=== PATIENT | male | born 1935 | race Caucasian/White ===

== ENCOUNTER 2025-01-23 15:33 | Outpatient (OUT) | payer MEDICARE, OTHER, SELFPAY ==
--- OUTSIDE RECORDS SUMMARY | 2025-01-23 15:43 | XMS_ITS | Encounter Summary ---
Author Organization [facility] MutuiOnline [facility] tem Address [id number] [address] [place] [address] Care Team Providers Care Geography Teacher Name Role Phone Vida Walt Ankur HOLMAN Primary Care Provider [phone] Reason for Visit * ReasonOnset DateCommentsMed Yaomam2601/20/2025 Encounter Details DateTypeDepartmentCare Team (Latest Contact Info)Ehvgnthkzhf27/20/2025[facility] [address] [place] [id number] Stefany Rosa CMA Hyperlipidemia, unspecified Social History Tobacco UseTypesPacks/DayYears UsedDateSmoking Tobacco: Every DayPipeSmokeless Tobacco: Never Comments:daily Alcohol UseStandard Drinks/WeekCommentsNo0 (1 standard drink = 0.6 oz pure alcohol)[facility] UtilitiesAnswerDate RecordedIn the past 12 months has the electric, gas, oil, or water company threatened to shut off services in your home?No 05/17/2024Social Connection and Isolation PanelAnswerDate RecordedIn a typical week, how many times do you talk on the phone with family, friends, or neighbors?Once a week01/09/2024How often do you get together with friends or relatives?Once a week01/09/2024How often do you attend tenriism or gnosticism services?Never01/09/2024o you belong to any clubs or organizations such as tenriism groups, unions, fraternal or athletic groups, or school groups?No 01/09/2024How often do you attend meetings of the clubs or organizations you belong to?Never01/09/2024re you , , , , never , or living with a partner?Wssmtym6901/09/2024UDIT-CAnswerDate RecordedQ1: How often do you have a drink containing alcohol?Never01/09/2024Q2: How many drinks containing alcohol do you have on a typical day when you are drinking? Patient does not drink01/09/2024Q3: How often do you have six or more drinks on one occasion?Never01/09/2024Overall Financial Resource Strain (CARDIA)AnswerDate RecordedHow hard is it for you to pay for the very basics like food, housing, medical care, and heating?Not hard at all05/17/2024PHQ-2AnswerDate RecordedTotal Kkwoe069[facility] [place] of Occupational Health - Occupational Stress QuestionnaireAnswerDate RecordedDo you feel stress - tense, restless, nervous, or anxious, or unable to sleep at night because yourmind is troubled all the time - these days?Not at all01/09/2024Exercise Vital SignAnswerDate RecordedOn average, how many days per week do you engage in moderate to strenuous exercise (like a brisk walk)?0 days01/09/2024On average, how many minutes do you engage in exercise at this level?0 min01/09/2024RAPARE - TransportationAnswerDate RecordedIn the past 12 months, has lack of transportation kept you from medical appointments or from getting medications?No05/17/2024In the past 12 months, has lack of transportation kept you from meetings, work, or from getting things needed for daily living?05/17/2024Housing InstabilityAnswerDate RecordedAre you worried or concerned that in the next two months you may not have stable housing that you own, rent or stay in as a part of a household?No05/17/2024 ChildcareAnswerDate RecordedDo problems getting attendant children's institution make it difficult for you to work or study?No01/09/2024EmploymentAnswerDate RecordedDo you need help finding a local career center and/or a training program?No01/09/2024Hunger ScreeningAnswerDate RecordedWithin the past 12 months we worried whether our food would run out before we got money to buy more.Never True12/20/2024Within the past 12 months the food we bought just didn't last and we didn't have money to get more.Never True12/20/2024Purpose - LifeAnswerDate RecordedI have a purpose and direction in my life.Neither Agree nor Kjbimxbt14/08/2024Sex and Gender InformationValueDate RecordedSex Assigned at BirthNot on fileLegal Sex Male11/06/2014 11:57 AM EDTGender IdentityNot on fileSexual OrientationNot on filedocumented as of this encounter Plan of Treatment Not on file documented as of this encounter Goals GoalPatient Goal TypeAssociated ProblemsRecent ProgressPatient-Stated?Author <enter goal here> Cathie Tan, [facility] Note: Evaluation of progress towards goal: Patient plans for a safe discharge home self care. documented as of this encounter Visit Diagnoses Diagnosis Hyperlipidemia, unspecified documented in this encounter Additional Health Concerns AssessmentNoted TimePHQ-9 Depression Total Score: 4:41 PM EDT documented as of this encounter Care Teams Team MemberRelationshipSpecialtyStart DateEnd Date Walt Mcpherson DO [address] [place] [address] PCP - General09/03/13documented as of this encounter
--- OUTSIDE RECORDS SUMMARY | 2025-01-23 15:44 | XMS_ITS | Encounter Summary ---
Author Organization [facility] tem Address [id number] [address] [place] [address] Care Team Providers Care Table Keeper Name Role Phone Walt Mcpherson DO Primary Care Provider [phone] Reason for Visit * ReasonCommentsMed Refill Encounter Details DateTypeDepartmentCare Team (Latest Contact Info)Teouhkronzb92/14/2025Refill [facility] Internal [facility] - Family Medicine [address] [place] [address] Walt Mcpherson DO [address] [place] [address] Benign prostatic hyperplasia with lower urinary tract symptoms; Acute on chronic systolic heart failure ([facility]) Social History Tobacco UseTypesPacks/DayYears UsedDateSmoking Tobacco: Every DayPipeSmokeless Tobacco: Never Comments:daily Alcohol UseStandard Drinks/WeekCommentsNo0 (1 standard drink = 0.6 oz pure alcohol)[facility] UtilitiesAnswerDate RecordedIn the past 12 months has the electric, gas, oil, or water [employer] threatened to shut off services in your home?No 05/17/2024Social Connection and Isolation PanelAnswerDate RecordedIn a typical week, how many times do you talk on the phone with family, friends, or neighbors?Once a week01/09/2024How often do you get together with friends or relatives?Once a week01/09/2024How often do you attend congregation or sabianist services?Never01/09/2024o you belong to any clubs or organizations such as congregation groups, unions, fraternal or athletic groups, or school groups?No 01/09/2024How often do you attend meetings of the clubs or organizations you belong to?Never01/09/2024re you , , , , never , or living with a partner?Wyowono8701/09/2024UDIT-CAnswerDate RecordedQ1: How often do you have a [...] care, and heating?Not hard at all05/17/2024PHQ-2AnswerDate RecordedTotal Evmzt120[facility] [place] of Occupational Health - Occupational Stress QuestionnaireAnswerDate [...] or from getting things needed for daily living?No05/17/2024Housing InstabilityAnswerDate RecordedAre you worried or concerned that in the next two months you may not have stable housing that you own, rent or stay in as a part of a household?No05/17/2024 ChildcareAnswerDate RecordedDo problems getting child caregiver make it difficult for you to work [...] and direction in my life.Neither Agree nor Ixgaifyi78/08/2024Sex and Gender InformationValueDate RecordedSex Assigned at BirthNot [...] as of this encounter Visit Diagnoses Diagnosis Benign prostatic hyperplasia with lower urinary tract symptoms Acute on chronic systolic heart failure ([facility]) Acute on chronic systolic heart failure documented in this encounter Additional Health Concerns AssessmentNoted TimePHQ-9 Depression Total Score: 4:41 PM EDT documented as of this encounter Care Teams Team MemberRelationshipSpecialtyStart DateEnd Date Walt Mcpherson DO [address] [place] [address] PCP - General09/03/13documented as of this encounter
--- OUTSIDE RECORDS SUMMARY | 2025-01-23 15:44 | XMS_ITS | Clinical Summary ---
Author Organization [facility] Address [address], [address] [place] [address] Care Team Providers Care Microchip Specialist Name Role Phone Mathew Anne Primary Care Provider [phone] Allergies No known active allergies Medications MedicationSigDispense QuantityRefillsLast FilledStart DateEnd DateStatus atorvastatin (LIPITOR) 20 MG tablet Take 20 mg by mouth dailyActive apixaban (ELIQUIS) 5 MG TABS tablet Take 5 mg by mouth 2 times dailyActive lisinopril (PRINIVIL;ZESTRIL) 10 MG tablet Take 10 mg by mouth dailyActive metoprolol (LOPRESSOR) 100 MG tablet Take 100 mg by mouth 2 times dailyActive finasteride (PROSCAR) 5 MG tablet Take 5 mg by mouth dailyActive Social History Tobacco UseTypesPacks/DayYears UsedDateSmoking Tobacco: Every Day Comments:smokes pipe Alcohol UseStandard Drinks/WeekCommentsNo0 (1 standard drink = 0.6 oz pure alcohol)Sex and Gender InformationValueDate RecordedSex Assigned at BirthNot on fileLegal GffSdro2204/14/2016 1:10 PM ESTGender IdentityNot on fileSexual OrientationNot on file Last Filed Vital Signs Vital SignReadingTime TakenCommentsBlood Eatsgkru116/8003 6:30 PM EDT Vovat076406/21/2016 6:30 PM OIUIcqzlqjkxda24.4 ??C (97.6 ??F)06/21/2016 10:25 AM EDTRespiratory Refc442106/21/2016 6:30 PM EDTOxygen Omtyrmfacq55%06/21/2016 6:30 PM EDTInhaled Oxygen Concentration--Yhtzni56.7 kg (200 lb)06/21/2016 10:25 AM EKJShibsb586.2 cm (5' 7 )06/21/2016 10:25 AM EDTBody Mass Index31.32006/21/2016 10:25 AM EDT Plan of Treatment Not on file Insurance * Guarantor: Cyndee Bowers TypeRelation to PatientDate of BirthPhone Billing AddressPersonal/EytwliUvsc89/13/1936 [address] [address] Advance Directives * Full Code (Latest Code Status on File) Date ActivatedDate InactivatedComments06/21/2016 3:10 PM07/13/2016 3:01 AM * Full Code Date ActivatedDate InactivatedComments06/21/2016 10:04 AM06/21/2016 3:10 PM Care Teams Team MemberRelationshipSpecialtyStart DateEnd Date Mathew Anne DO PCP - GeneralCardiology06/13/16
--- OUTSIDE RECORDS SUMMARY | 2025-01-23 15:44 | XMS_ITS ---
Author Organization [employer] tem Address [id number] [address] [place] [address] Care Team Providers Care Professor Of Archaeology Name Role Phone Walt Mcpherson DO Primary Care Provider [phone] Active Problems ProblemNoted DateDiagnosed DateSevere mitral vhhesfjaiikes37/24/2025Systolic heart rjfytmn3711/22/2023Shortness of mpgnal8904/17/2023Other lveiaxnrm81/08/2023 Essential wimkuzbtdvhh83/08/8326Uvmkpertksyici30/08/2023Status post implantation of mitral valve leaflet clip02/03/2021olyp of ascending colon10/21/2020 Diverticulosis large intestine w/o perforation or abscess w/o npxjgkgy39/21/2021 Iron xwvuenjkiinnz13/28/2021Iron deficiency gvhgwm5809/25/2020ersonal history of colonic hzleep2709/25/2020 Overview (01/02/2024): Replacing Diagnosis that were inactivated after 01/01 regulatory import Iwzgaumsi68/26/2021Malignant neoplasm of trigone of urinary cpxdcty6106/22/2020 Overview (10/12/2020): ==== 10/12/2020 === Restaging TURBT. negative ==== 08/19/2020 ==== ##### status post TURBT large. 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 Muscle is present but not involved. ==== 07/14/2020 ==== New problem, additional workup planned. Findings consistent with urothelial carcinoma. I cannot be certain that the left ureteral orifice is not involved. May have bladder neck involvement well. He is on Eliquis. That with the patient his and his daughter who is a nurse andwho took notes. ==== 06/22/2020 ==== daily pipe smoker since age 18. One month episode of intermittent painless gross hematuria. Has been on finasteride for many years. No flank pain. Needs full hematuria evaluation as described below. He is on Eliquis. Hematuria primarily at the initiation of voiding with clearingas urination progresses PLAN: CT urogram cystoscopy cytology PSA Assessment & Plan (10/12/2020 11:44 AM EDT): We did discuss then the next steps for intravesical treatment. We did discussed BCG as well as gemcitabine. The differences. The risks benefits of proceeding with 1 or the other. The availability of gemcitabine certainly greater than BCG. The the reliance BCG on a robust immune system as well. Family part of discssion. Agreement to proceed with gemcitabine Assessment & Plan (08/19/2020 2:27 PM EDT): Tilley catheter removed today. Discussion pathology. Pathology report given the patient as well. Name and date of confirmed. Understand the need for restaging TURBT. And then eventual intravesical therapy and surveillance. Assessment & Plan (07/14/2020 4:08 PM EDT): Next step would be TURBT. Patient would need to stop his Eliquis. Could potentially require stent. Could potentially requiren overnight stay depending on if he has some bladder neck involvement and to what extent. There is risk certainly of bleeding infection need for reoperation damage to surrounding structures. Damage the bladder. Potential perforation of the bladder. We did discuss postoperative mitomycin-C risks and benefits of doing so. They declined to proceed with such. The understand the natural history of untreated bladder cancer as well. Assessment & Plan (06/22/2020 2:56 PM EDT): We reviewed today than any abnormality of the urinary tract including cancer, medical renal disease, infection, calculi, bleeding the diathesis, idiopathic, benign familial, BPH, or congenital anomaly could account for hematuria, and hence the importance of evaluation. The patient understands that all studies ordered must be completed in order to fully evaluate the urinary system. The patient acknowledges this and agrees. Paroxysmal atrial vejydmorvnge95/12/2021Complete heart block1Pulmonary mkqoeknlcjhq53/12/2021Presence of cardiac pacemaker- BSI05/08/2019Syncope 03/22/20191308Rtfbwmznofjevc65/29/2014Left ventricular failureNonrheumatic mitral (valve) insufficiencyAtrial flutter Current Treatment and Therapy Plans No current plan information found. Past Treatment and Therapy Plans Plan NameStart DateDiscontinue DateTreatment MedicationsDiscontinue ReasonPlan ProviderGEMCITABINE MAINTENANCE BLADDER INSTILLATION/02/2025* gemcitabine (GEMZAR) Hortencia Dawson MD Lifetime Dose Tracking * ChemicalLifetime DoseAutomatic EntryManual EntryFluoroscopy1,339.93 mGy15.78 mGy1,324.15 mGy Resolved Problems ProblemNoted DateDiagnosed DateResolved DateAcute on chronic systolic heart hreqjfl91Status post placement of implantable loop recorder Presence of other cardiac implants and wbldob6204/18/2017 05/08/2019Angina vwahedsu57/08/2023
--- OUTSIDE RECORDS SUMMARY | 2025-01-23 15:44 | XMS_ITS | Clinical Summary ---
Author Organization [employer] tem Address [id number] [address] [place] [address] Care Team Providers Care Civil Structural Designer Name Role Phone Walt Mcpherson DO Primary Care Provider [phone] Allergies No known active allergies Medications MedicationSigDispense QuantityRefillsLast FilledStart DateEnd DateStatus fluticasone propion-salmeteroL (ADVAIR) 250-50 mcg/dose DISKUS Indications:Other emphysema (CMS-HCC)Inhale 1 puff in the morning and 1 puff before bedtime. 180 each 4Active liver oil-zinc oxide (TRIPLE PASTE) ointment Apply 1 Application topically as needed for irritation.Active metoprolol succinate XL (TOPROL XL) 25 mg 24 hr tablet Indications:PAC (premature atrial contraction),PVC (premature ventricular contraction)TAKE 1 TABLET BY MOUTH TWICE DAILY 180 tablet 304/5Active sacubitriL-valsartan (ENTRESTO) 24-26 mg tablet Take 1 tablet by mouth in the morning and 1 tablet before bedtime. 60 tablet 605Active apixaban (ELIQUIS) 5 mg tablet Indications:Paroxysmal atrial fibrillation (CMS-HCC)Take 1 tablet (5 mg total) by mouth in the morning and 1 tablet (5 mg total) before bedtime. TAKE 1TABLET BY MOUTH TWICE DAILY (IN THE MORNING AND BEFORE BEDTIME). 180 tablet 109/05/2025Active finasteride (PROSCAR) 5 mg tablet Indications:Benign prostatic hyperplasia with lower urinary tract symptomsTAKE 1 TABLET BY MOUTH DAILY 90 tablet 1105Active furosemide (LASIX) 40 mg tablet Indications:Acute on chronic systolic heart failure (CMS-HCC)TAKE 1/2 (ONE-HALF) OF A TABLET BY MOUTH with BREAKFAST 45 tablet 1105Active atorvastatin (LIPITOR) 40 mg tablet Indications:Hyperlipidemia, unspecifiedTake 1 tablet (40 mg total) by mouth every morning. 90 tablet 1105Active finasteride (PROSCAR) 5 mg tablet Indications:Benign prostatic hyperplasia with lower urinary tract symptomsTAKE 1 TABLET BY MOUTH DAILY 90 tablet Discontinued furosemide (LASIX) 40 mg tablet Indications:Acute on chronic systolic heart failure (CMS-HCC)TAKE 1/2 (ONE-HALF) OF A TABLET BY MOUTH DAILY with BREAKFAST 45 tablet Discontinued atorvastatin (LIPITOR) 40 mg tablet Indications:Hyperlipidemia, unspecifiedTAKE 1 TABLET BY MOUTH DAILY 90 tablet Discontinued(Reorder) Active Problems ProblemNoted DateDiagnosed DateSevere mitral kcwwdznymjmug38/24/2025Systolic heart qqksdvj6611/22/2023Shortness of krlqed7604/17/2023Other soxvnbgae09/08/2023 Essential afobdhnvuuyp71/08/2900Byledugxsyysxo52/08/2023Status post implantation of mitral valve leaflet clip02/03/2021olyp of ascending colon10/21/2020 Diverticulosis large intestine w/o perforation or abscess w/o qvmqwiqc81/21/2021 Iron wyzpdyyneemou39/28/2021Iron deficiency vsnmco5609/25/2020ersonal history of colonic emlluc4709/25/2020 Overview (01/02/2024): Replacing Diagnosis that were inactivated after 01/01 regulatory import Dydzlmcev10/26/2021Malignant neoplasm of trigone of urinary ycoqnfq1606/22/2020 Overview (10/12/2020): ==== 10/12/2020 === Restaging TURBT. [...] patient acknowledges this and agrees. Paroxysmal atrial zqysbpihfwzf21/12/2021omplete heart block04/14/2020ulmonary vseooqocngow01/12/2021resence of cardiac pacemaker- BSI05/08/2019Syncope 03/22/20193721Dhinwhkjyvipze15/29/2014Left ventricular failureNonrheumatic mitral (valve) insufficiencyAtrial flutter Resolved Problems ProblemNoted DateDiagnosed DateResolved DateAcute on chronic systolic heart nhyxsvx01Status post placement of implantable loop recorder Presence of other cardiac implants and fcjauh3404/18/2017 05/08/2019Angina pyvpmaqe50/08/2023 Encounters DateTypeDepartmentCare CwnhGooeocwnpyn08/20/2025Refill [facility] - [facility] [address] [place] [address] Stefany Rosa CMA Hyperlipidemia, nlqvlgnrazu02/14/2025Refill [facility] - Family Medicine [address] [place] [address] Walt Mcpherson DO Benign prostatic hyperplasia with lower urinary tract symptoms; Acute on chronic systolic heart failure ([facility])01/06/2025Telephone [facility] - Family Medicine [address] [place] [address] Shannon Ely CMA 12/20/2024 2:20 PM EDTOffice Visit [facility] [address] [facility] [place] [phone] Walt Mcpherson, Mike Lyons, SENIOR UX DESIGNER-SERVICE CENTER TECHNICIAN Skin callus (Primary Dx); Skin ulcer of sacrum, limited to breakdown of skin ([facility])12/18/2024Results Follow-Up [facility] - [facility] [address] [place] [address] Walt Mcpherson, Thyroid profile includes TSH FT4, Lipid profile, Comprehensive metabolic panel, CBC auto prepjixabgbt48/16/2025 4:15 PM EDTOffice Visit [facility] - [facility] [address] [place] [phone] Walt Mcpherson, Chronic systolic (congestive) heart failure ([facility]) (Primary Dx); Essential hypertension; Skin ulcer of sacrum, limited to breakdown of skin ([facility]); Memory impairment; Mixed hyperlipidemia; Malignant neoplasm of trigone of urinary bladder ([facility]); Other emphysema ([facility])12/17/20241240Wrkosq65/05/2025Refill [facility] [address] [place] [address] Mary Ross, RN Med Denbqj7112/06/2024[facility] [address] [place] [address] Danitza Cazares, UMU 12/06/2024Refill [facility] [address] [place] [address] Ruel Hathc, SENIOR UX DESIGNER-SERVICE CENTER TECHNICIAN Med Vcjlgr3912/06/2024Refill [facility] - [facility] [address] [place] [phone] Walt Mcpherson, Other emphysema ([facility])from Last 3 Months Immunizations ImmunizationAdministration DatesNext DueCOVID-19, mRNA, LNP-S, PF, 30mcg/0.3mL Dose05/27/2020,04/29/2020Influenza (IM) Preservative Free02/08/2016Influenza High Dose Preservative Free IM12/15/2016,01/14/2015Influenza Vaccine, Quadrivalent, Jacqwlypxn60/13/2021,12/28/2019Influenza Whole01/03/2011, 01/20/2010,01/21/2009,02/05/2007Influenza, High-dose, Milzceomqdhh71/13/2022 Influenza, Im Trivalent Fxdnemqfpkbw33/14/2015Influenza, Injectable, Bskrdxodcebs61/01/2021,12/02/2017Influenza, Trivalent, Tzahdzukvm10/21/2024, 01/12/2019,01/07/2018Pneumococcal Conjugate 13-Ugwevw2402/12/2015Pneumococcal Trouydlbvayulz37/29/2008Zoster Live05/13/2008Zoster Vaccine Recombinant 02/22/2024 Family History Medical HistoryRelationNameCommentsNo Known ProblemsFatherCoronary artery diseaseMaternal GrandfatherHeart attackMaternal GrandfatherNo Known Problems MotherStrokePaternal GrandfatherAnesthesia problemsNeg HxRelationNameStatus CommentsFatherDeceasedMaternal GrandfatherMotherDeceasedPaternal Grandfather Social History Tobacco UseTypesPacks/DayYears UsedDateSmoking Tobacco: Every DayPipeSmokeless Tobacco: Never Comments:daily Alcohol UseStandard Drinks/WeekCommentsNo0 (1 standard drink = 0.6 oz pure alcohol)[facility] UtilitiesAnswerDate RecordedIn the past 12 months has the [employer], [employer], or water [employer]umi[employer]sou threatened to shut off services in your home?No 05/17/2024Social Connection and Isolation PanelAnswerDate RecordedIn a typical week, how many times do you talk on the phone with family, friends, or neighbors?Once a week01/09/2024How often do you get together with friends or relatives?Once a week01/09/2024How often do you attend evangelical or gnosticist services?Never4Do you belong to any clubs or organizations such as evangelical groups, unions, fraternal or athletic groups, or school groups?No 01/09/2024How often do you attend meetings of the clubs or organizations you belong to?Never01/09/2024re you , , , , never , or living with a partner?Sboemod4301/09/2024UDIT-CAnswerDate RecordedQ1: How often do you have a [...] care, and heating?Not hard at all05/17/2024PHQ-2AnswerDate RecordedTotal Dmhsj629[facility] [place] of Occupational Health - Occupational Stress QuestionnaireAnswerDate [...] of a household?No05/17/2024 ChildcareAnswerDate RecordedDo problems getting salesperson children's shoes make it difficult for you to work [...] and direction in my life.Neither Agree nor Rkszqerj49/08/2024Sex and Gender InformationValueDate RecordedSex Assigned at BirthNot on fileLegal Sex Male11/06/2014 11:57 AM EDTGender IdentityNot on fileSexual OrientationNot on file Last Filed Vital Signs Vital SignReadingTime TakenCommentsBlood Hwkravoo446/7312/20/2024 2:35 PM EDT Kvopb732812/20/2024 2:35 PM EMVBhiyuyuxtsp59.4 ??C (97.5 ??F)12/20/2024 2:35 PM EDTRespiratory Dghm684212/20/2024 2:35 PM EDTOxygen Alykhwkwon04%12/17/2024 4:42 PM EDTInhaled Oxygen Concentration--Imapfu65 kg (161 lb)12/17/2024 4:42 PM EDT Wapmji448.2 cm (5' 7 )12/17/2024 4:42 PM EDTBody Mass Index25.22012/17/2024 4:42 PM EDT Plan of Treatment Health MaintenanceDue DateLast DoneCommentsTobacco Exnrwssupk35/13/1938DTaP,Tdap and Td Vaccines (1 - Tdap)1956Zoster (Shingles) Vaccine (2 of 2)04/18/2024 02/22/2024, 05/13/2008COVID-19 Vaccine (5 - Pfizer risk 2023- season) /, 01/13/2021, 05/27/2020, Additional history existsInfluenza Kznjdkk02/, 01/13/2022, 02/01/2021, Additional history exists Medicare Annual Wellness Visit/epression Nxtltopwo82/16/2026 12/17/2024Fall Risk Fbirdcbgc23/Tobacco Jkvpqdtuq87/19/2026 12/20/2024 Goals GoalPatient Goal TypeAssociated ProblemsRecent ProgressPatient-Stated?Author <enter goal here> Cathie Tan RN Note: Evaluation of progress towards goal: Patient plans for a safe discharge home self care. Medical Devices ImplantedTypeAreaManufacturerDevice IdentifierShelf Expiration DateModel / Serial / LotLd Ingevity 59cm Mri - [id number] - [id number] Implanted:Qty: 1 on 03/22/2019 [facility] LeadLeft: ChestTOLLEY SCIENTIFIC/CRM01/30/[id number] / [id number] / Ld Pcng 65cm 6fr Ecr Tndrl - [id number] - [id number] Implanted:Qty: 1 on 03/22/2019 [facility] LeadLeft: ChestABBOTT CRM12/01/[id number]/65 / [id number] / System Dlv Clip 4th Gnrtn Mitraclip Ntw - [id number] - [id number] Implanted:Qty: 1 on 01/27/2021 by [facility] ValveABBOTT [id number] / [id number] / [id number] Dlv Clip 4th Gnrtn Mitraclip Ntw - [id number]-Eda - [id number] Implanted:Qty: 1 on 01/27/2021 by [facility] ValveABBOTT [id number]/10/[id number] / [id number] / [id number] Joleen Dick - [id number] - [id number] Implanted:Qty: 1 on 03/22/2019 [facility]: Marjan Springer03/21/2020L321 / [id number] / ExplantedTypeAreaManufacturerDevice IdentifierShelf Expiration DateModel / Serial / LotValve Mtrl Franklin Hunter Repair Implant Use Pas2ma For Charging - [id number] Explanted:Qty: 1 on 05/16/2024 by Alex Pineda MD at [facility] Implant ValveEdwards Life Dntilskk44/22/[id number] / / Procedures Procedure NamePriorityDate/TimeAssociated DiagnosisCommentsDEBRIDEMENTRoutine 12/20/2024 2:20 PM EDT Skin callus CBC WITH AUTO GPKFXOOYYHWGAbcflhf45/16/2025 5:06 PM EDT Chronic systolic (congestive) heart failure (CMS-HCC) COMPREHENSIVE METABOLIC DBBGVQzsvfez49/16/2025 5:06 PM EDT Chronic systolic (congestive) heart failure (CMS-HCC) LIPID XMCXWTHYtpzjbx57/16/2025 5:06 PM EDT Mixed hyperlipidemia THYROID PROFILE INCLUDES TSH RQ8Hqyqmji71/16/2025 5:06 PM EDT Chronic systolic (congestive) heart failure ([facility]) [place] REM INTERROG PM/LDLS PM <90 D PHYS/CPKBnpqpyu04/29/2025 2:10 AM EDTfrom Last 3 Months Results * Debridement (12/20/2024 2:20 PM EDT) Narrative MANUALLY TRANSCRIBED RESULTS - 12/20/2024 2:20 PM EDT JAMIE Gage 12/23/2024 5:25 PM Debridement Performed by: JAMIE Gage Authorized by: JAMIE Gage ?? Consent: ??Consent obtained: ??Written ??Consent given by: ??Patient ??Risks discussed: Yes ?Time Out Called and Procedure Site Confirmed: ?? Debridement Details: ??Performed by: ??MATERIAL SPREADER ??Type: ??Sharp ??Level: ??Skin ??Tissue, Devitalized tissue and other material debrided: ??Biofilm and callus ??Total Surface Area Debrided cm^2: ??1 ??Specimen Taken: ??None ??Instrument: ??Curette ??Amount of bleeding: ??None ??Bleeding Control: ??None ??Response to treatment: ??Procedure was tolerated well Authorizing ProviderResult TypeResult StatusAlexi Bakari Liban SENIOR UX DESIGNER-SERVICE CENTER TECHNICIAN PROCEDURE/MINOR SURGICAL ORDERABLESFinal ResultPerforming OrganizationAddress City/State/ZIP CodePhone Number MANUALLY TRANSCRIBED RESULTS * Thyroid profile includes TSH FT4 (12/17/2024 5:06 PM EDT)ComponentValueRef RangeTest MethodAnalysis TimePerformed AtPathologist SignatureFREE T41.070.61 - 1.60 ng/dL12/17/2024 10:34 PM [facility] LABORATORYTSH1.34 0.49 - 4.67 uIU/mL12/17/2024 10:34 PM [facility] Specimen (Source)Anatomical Location / LateralityCollection Method / Volume Collection TimeReceived TimeBloodVenous blood / Mimaftk3612/17/2024 5:06 PM EDT 12/17/2024 5:06 PM EDT Narrative Authorizing ProviderResult TypeResult StatusJobaltazar Ankur GUILLEN BLOOD ORDERABLES Final ResultPerforming OrganizationAddressSt. John Of [facility]/State/ZIP CodePhone Number [facility] [address] [place] [address], * (ABNORMAL) CBC auto differential (12/17/2024 5:06 PM EDT)ComponentValueRef RangeTest MethodAnalysis TimePerformed AtPathologist SignatureWBC6.94 - 11 x10E9/L12/17/2024 10:11 PM [facility] LABORATORYRBC Count3.84 (L)4.1 - 5.7 X10E12/L12/17/2024 10:11 PM [facility] EFYCZKSNYJPduzrykmwa64.1(L)13 - 17 g/dL12/17/2024 10:11 PM [facility] WEMMLTJXJSCxvsuwydze20.7(L)39 - 50 %12/17/2024 10:11 PM [facility] OSUOYHURBGGZD5812 - 100 fL12/17/2024 10:11 PM [facility] YXUGLUMBXXOHJ27.527 - 34 pg12/17/2024 10:11 PM [facility] INRWOGMZMIZBMG99.032 - 36 g/dL12/17/2024 10:11 PM [facility] REOJXZQAEDKNX16.5(H)11.5 - 15 %12/17/2024 10:11 PM [facility] LABORATORYPlatelet Kjnzb013680 - 450 X10E9/L12/17/2024 10:11 PM [facility] LABORATORYMPV8.67 - 12 fL12/17/2024 10:11 PM [facility] LABORATORYNeutrophils %71.3%12/17/2024 10:11 PM [facility] LABORATORYLymphocytes %16.0%12/17/2024 10:11 PM [facility] LABORATORYMonocytes %7.9%12/17/2024 10:11 PM [facility]ORYEosinophils %4.2%12/17/2024 10:11 PM [facility] LABORATORYBasophils %0.6%12/17/2024 10:11 PM [facility] LABORATORYNeutrophils Absolute (A)4.91.5 - 6.6 10*3/uL12/17/2024 10:11 PM [facility] LABORATORYLymphocytes Absolute1.11.0 - 3.5 10*3/uL12/17/2024 10:11 PM [facility] LABORATORYMonocytes Absolute0.50.0 - 0.9 10*3/12/17/2024 10:11 PM [facility] LABORATORYEosinophils Absolute0.30.0 - 0.4 10*3/uL12/17/2024 10:11 PM [facility] LABORATORYBasophils Absolute0.00.0 - 0.2 10*3/uL12/17/2024 10:11 PM [facility] LABORATORYDifferential TypeAUTOMATED AQCULQASVTOH86/16/2025 10:11 PM [facility] LABORATORYSpecimen (Source)Anatomical Location / LateralityCollection Method / VolumeCollection TimeReceived TimeBloodVenous blood / Yeflool4412/17/2024 5:06 PM EDT12/17/2024 5:06 PM EDT Narrative Authorizing ProviderResult TypeResult StatusJohn L Yuhas DOLAB BLOOD ORDERABLES Final ResultPerforming OrganizationAddressCity/State/ZIP CodePhone Number [facility] [address] [place] [address], * (ABNORMAL) Lipid profile (12/17/2024 5:06 PM EDT)ComponentValueRef RangeTest MethodAnalysis TimePerformed AtPathologist ElqrnkrgoULVNQKCLMDH417(L)150 - 200 mg/dL12/17/2024 10:22 PM [facility] LDZVMLVTGEETCGBPUQRWGS915 27 - 150 mg/dL12/17/2024 10:22 PM [facility] LABORATORYHDL PVLCXKPJHAE63>39 mg/dL12/17/2024 10:22 PM [facility] LABORATORYComment: HDL <40 mg/dL - High Risk HDL > or = 40mg/dL- Desirable HDL >60 mg/dL - Negative Risk LDL (CALC)62<130 mg/dL12/17/2024 10:22 PM [facility] Comment: LDL <100 mg/dL - Desirable LDL >160 mg/dL - High Risk CHOLESTEROL:HDL3.01.0 - 5.009 10:22 PM [facility] LABORATORYVERY LOW LPMSYBEGDAG348 - 30 mg/dL12/17/2024 10:22 PM [facility] LABORATORYSpecimen (Source)Anatomical Location / Laterality Collection Method / VolumeCollection TimeReceived TimeBloodVenous blood / Udrbetn7812/17/2024 5:06 PM EDT12/17/2024 5:06 PM EDT Narrative Authorizing ProviderResult TypeResult StatusJohn L Yuhas DOLAB BLOOD ORDERABLES Final ResultPerforming OrganizationAddressCity/State/ZIP CodePhone Number [facility] [address] [place] [address], * (ABNORMAL) Comprehensive metabolic panel (12/17/2024 5:06 PM EDT)Component ValueRef RangeTest MethodAnalysis TimePerformed AtPathologist SignatureSODIUM 778345 - 146 mmol/L12/17/2024 10:22 PM [facility] POTASSIUM4.93.5 - 5.0 mmol/L12/17/2024 10:22 PM [facility] IADTOTREPLEUYBLSON26186 - 109 mmol/L12/17/2024 10:22 PM [facility] LABORATORYCARBON SOORHLN3460 - 32 mmol/L12/17/2024 10:22 PM [facility] LABORATORYANION JNF575 - 15 mmol/L12/17/2024 10:22 PM EDT [facility] LABORATORYBLOOD UREA UKZGZKKI56(H)5 - 27 mg/dL 12/17/2024 10:22 PM [facility] LABORATORYCREATININE1.180.60 - 1.30 mg/dL12/17/2024 10:22 PM [facility] LABORATORYComment: METHOD TRACEABLE TO IDLA KDQMEIAWJLLUTIE3453 - 99 mg/dL12/17/2024 10:22 PM EDT [facility] MBRAFPDIHKTGDYJIX79.08.5 - 10.5 mg/dL12/17/2024 10:22 PM [facility] LABORATORYTOTAL PROTEIN8.4(H)6.0 - 8.0 g/dL 12/17/2024 10:22 PM [facility] LABORATORYALBUMIN4.63.2 - 5.3 g/dL12/17/2024 10:22 PM [facility] LABORATORYALKALINE PJLWTXNEMXA7922 - 130 U/L12/17/2024 10:22 PM [facility] XSOVXSCCWJMCB41<=41 U/L12/17/2024 10:22 PM [facility] EQBICUMWCZAYA89<=40 U/L12/17/2024 10:22 PM [facility] LABORATORYBILIRUBIN,TOTAL0.70.3 - 1.2 mg/dL12/17/2024 10:22 PM [facility]ORYEGFR Non-Race Bdoopiamz40>=60 ml/min/1.73sq.m 12/17/2024 10:22 PM [facility] LABORATORYComment: Reported eGFR is based on the CKD-EPI 2020 equation that does not use a race coefficient. Specimen (Source)Anatomical Location / LateralityCollection Method / Volume Collection TimeReceived TimeBloodVenous blood / Idpjrnn8312/17/2024 5:06 PM EDT 12/17/2024 5:06 PM EDT Narrative Authorizing ProviderResult TypeResult StatusWalt GUILLEN BLOOD ORDERABLES Final ResultPerforming OrganizationAddressCity/State/ZIP CodePhone Number [facility] [address] [place] [address], * Remote Device Check (10/29/2024 2:10 AM EDT)Anatomical RegionLaterality ModalityOtherSpecimen (Source)Anatomical Location / LateralityCollection Method / VolumeCollection TimeReceived Time10/29/2024 2:10 AM EDT Narrative Authorizing ProviderResult TypeResult StatusJaydyahaira Delatorre MDHEALTH MAINTENANCE Final Result from Last 3 Months Insurance Advance Directives TypeDate RecordedPatient RepresentativeExplanationLiving Will07/03/2023 8:28 AM LIVING WILL DECLARATION 07/03/2023 * Full Code (Latest Code Status on File) Date ActivatedDate QymduarjetqJrcfontf88/20/2019 11:58 AM03/23/2019 4:28 PM Care Teams Team MemberRelationshipSpecialtyStart DateEnd Date Walt Mcpherson DO [address] [place] [address] PCP - General09/03/13
--- NOTE | 2025-01-23 15:47 | XR_ITS ---
[facility] [place] [id number] Patient Name: ROGER RAMIREZ MRN: [id number] date: 1935 Sex: M Assigned Patient Location: [facility] Current Patient Location: [facility] Accession/Order Number: [id number] Exam Date: 01/23/2025 15:50 Report Date: 01/23/2025 18:47 At the request of: GIANNA HOLLINS DO Procedure: XR shoulder RT min 2V 3 views of the right shoulder CLINICAL HISTORY: Pain in right shoulder, adhesive capsulitis of an unspecifie COMPARISON: None FINDINGS: Severe degenerative changes glenohumeral joints. Moderate acromioclavicular degenerative changes. Superior subluxation of the humeral head suggest chronic rotator cuff tear. XR/XR shoulder RT min 2V IMPRESSION: No acute bony process. Severe glenohumeral and moderate acromioclavicular degenerative change. Superior subluxation humeral head Suggestive of chronic rotator cuff tear. Impression dictated by: Job Elizabeth M.D. 01/23/2025 6:47 PM Dictation Location: [place] [address] Electronically authenticated by: [id number] Y Date: 01/23/2025 18:47
== END 2025-01-23 15:34 | disposition home or self-care (01) ==
LOC: RAD 15:40
PROVIDERS: PCP Internal Medicine; Visit Provider Anesthesiology
DX: M25.511 Pain in right shoulder (principal); M75.01 Adhesive capsulitis of right shoulder
CPT/HCPCS: 73030